=== PATIENT | female | born 1965 | race Caucasian/White ===

== ENCOUNTER 2024-02-20 10:47 | Emergency (ER) | payer SELFPAY ==
[2024-02-20 11:10] VITALS: BP 155/87
[2024-02-20 11:41] VITALS: BMI 24.9
[2024-02-20 11:45] VITALS: BP 143/83
[2024-02-20 12:01] VITALS: BP 148/71
[2024-02-20 12:09] LABS: Urine Albumin Trace (Neg - Trace); Urine Bilirubin Negative (Negative); Urine Character Clear (Clear); Urine Color Yellow; Urine Glucose Negative (Negative); Urine Ketone Trace (Negative); Urine Leukocyte Trace (Negative); Urine Nitrite Negative (Negative); Urine Occult Blood 4+ (Negative); Urine Specific Gravity 1.015 (<1.030); Urine Urobilinogen Negative (Neg - 1+)
[2024-02-20 12:10] LABS: % Basophils 0.3 % (0-2); % Immature Granulocytes 0.3 % (0-0.5); % Lymphocytes 12.7 % (20.5-51.1); % Monocytes 6.4 % (1.7-9.3); % Neutrophils 80.3 % (42.2-75.2); Absolute Lymphocytes 1.4 10^3/uL (1.2-3.4); Absolute Monocytes 0.7 10^3/uL (0.1-0.6); Absolute Neutrophils 8.6 10^3/uL (1.4-6.5); Hematocrit 37.1 % (37.0-47.0); Hemoglobin 13.2 g/dL (12.0-16.0); Mean Corp Hgb Conc. 35.6 g/dL (33.0-37.0); Mean Corpuscular Volume 89.8 fL (81.0-99.0); Mean Platelet Volume 8.9 fL (7.4-10.4); Nucleated Red Blood Cells % 0 %; Platelet Count 200 10^3/uL (130-400); Red Blood Cell Count 4.13 10^6/uL (4.20-5.40); Red Cell Dist. Width 12.3 % (11.5-14.5); White Blood Cell Count 10.7 10^3/uL (4.8-10.8)
[2024-02-20 12:17] LABS: Urine Bacteria Few (Negative); Urine Red Blood Cell 70-80 /HPF (0-2); Urine Squamous Cell 0-2 /LPF (Few); Urine White Cell 0-2 /HPF (0-5)
[2024-02-20 12:18] LABS: ALT (SGPT) 25 U/L (0-35); AST (SGOT) 31 U/L (14-36); Albumin 4.7 g/dl (3.5-5.0); Alkaline Phosphatase 81 U/L (38-126); Blood Urea Nitrogen 18 mg/dl (7-17); Calcium 10.2 mg/dl (8.4-10.2); Carbon Dioxide 28 mmol/L (22-30); Chloride 98 mmol/L (98-107); Estimated Creatinine Clearance 46 ml/min; Glucose 128 mg/dl (70-99); Lipase 120 U/L (23-300); Potassium 4.4 mmol/L (3.5-5.1); Sodium 135 mmol/L (135-145); Total Bilirubin 0.6 mg/dl (0.2-1.3); Total Protein 7.7 g/dl (6.3-8.2); eGFR 51.82
[2024-02-20 13:00] VITALS: BP 156/80
[2024-02-20] MEDS: NSS 1000 IV (13:13)
[2024-02-20] MEDS: PEPCID 20 MG IV (13:15)
[2024-02-20] MEDS: ZOFRAN 4 MG IV (13:15)
[2024-02-20 14:00] VITALS: BP 167/87
--- NOTE | 2024-02-20 15:17 | ED.GENMED ---
History of Present Illness
General
Chief Complaint: Abdominal Pain
Source: patient
Exam Limitations: none
Time Seen by Provider: 02/20/24 11:59
Nursing documentation reviewed up to this point in time: agreed with
Travel History
Have you had any contact with someone who has COVID-19?: No
Do you have any symptoms of coronavirus? Fever > 100 degrees, chills, cough, shortness of breath, sore throat, loss of taste or smell, muscle aches, or headache?: No
History of Present Illness
History of Present Illness:
58-year-old female past medical history of seizure disorder presenting to the emergency department today with concerns of right lower abdominal pain starting last night with associated vomiting but with diarrhea last night as well. Pain is mainly
to the right flank and right lower abdomen at this point. Denies any fevers, vaginal symptoms
Past History
Past History
ED Past Medical History: None
ED Past Surgical History: None
Social History
Tobacco: Non-smoker
Alcohol: Occasional (drinks 1-2 nights per week)
Drug: None
Personal: Single
Living: alone
Employment: Employed
Family History
Family History: Other (aortic dissection, brother 60 y/o)
Review of Systems
Review of Systems
Allergies reviewed?: Yes
All Other Systems: ROS reviewed and negative except as documented in HPI and ROS
Phy Exam
Physical Exam
Physical Exam:
GENERAL: Alert , in no apparent distress
EYE: pupils equal and reactive
NECK: Supple, no significant adenopathy.
ENT: o/p clr, mmm.
CARDIAC: Regular rate and rhythm .
LUNGS: Clear breath sounds bilaterally, no acute respiratory distress, no wheezes/rales/rhonchi
ABDOMEN: Soft, without focal tenderness, no r/g, no cvat
NEUROLOGICAL: Alert and oriented, no focal neuro deficits
SKIN: Warm and dry, skin intact.
MUSCULOSKELETAL: No edema, well perfused.
PSYCH: Normal and appropriate interaction.
Course
Orders/Labs/Results
Orders:
Orders
02/20/24 11:55
Complete Blood Count/With Diff Urgent
Comprehensive Metabolic Panel Urgent
Lipase Urgent
Urinalysis Reflex To Culture Urgent
Date Specimen was Collected: 02/20/24
Time Specimen was Collected: 11:53
Urine Microscopic Reflex Cult Urgent
02/20/24 12:51
CT Abd/Pel (IV only)-DH only Urgent
Comment:
Reason For Exam: rlq pain
Famotidine [Pepcid] 20 mg IV NOW STA
Ondansetron Injectable [Zofran] 4 mg IV NOW STA
02/20/24 12:52
0.9% Sodium Chloride 1000 ml [Nss] 1,000 ml IV BOLUS
Abnormal Lab Results
02/20/24
11:55
RBC 4.13 L 10^6/uL
(4.20-5.40)
MCH 32.0 H pg
(27.0-31.0)
Absolute Neuts (auto) 8.6 H 10^3/uL
(1.4-6.5)
Absolute Monos (auto) 0.7 H 10^3/uL
(0.1-0.6)
Neutrophils % 80.3 H %
(42.2-75.2)
Lymphocytes % 12.7 L %
(20.5-51.1)
BUN 18 H mg/dl
(7-17)
Creatinine 1.2 H mg/dL
(0.6-1.0)
Glucose 128 H mg/dl
(70-99)
Urine Ketones Trace A
(Negative)
Ur Occult Blood Reflex 4+ A
(Negative)
Leukocyte Esterase Rfl Trace A
(Negative)
Urine RBC 70-80 A /HPF
(0-2)
Urine Bacteria (Reflex) Few A
(Negative)
02/20/24 11:55
02/20/24 11:55
Vital Signs
Initial and Last Documented VS:
Initial Vital Signs
Temp Pulse Resp BP Pulse Ox
98.3 F 74 16 155/87 99
02/20/24 11:10 02/20/24 11:10 02/20/24 11:10 02/20/24 11:10 02/20/24 11:10
Last Documented Vital Signs
Temp Pulse Resp BP Pulse Ox
98.3 F 69 18 167/87 98
02/20/24 11:10 02/20/24 14:45 02/20/24 14:45 02/20/24 14:00 02/20/24 15:04
MDM/Problems Addressed
MDM/Problems Addressed:
58-year-old female presenting to the emergency department today with concerns of right-sided abdominal pain starting last night associated vomiting. Here minimal discomfort to palpation but patient describing significant pain concerning the CT scan
was performed. This showed 8 mm stone to the proximal right ureter and 4.4 mm stone to the distal right ureter. Creatinine 1.2 BUN of 18 otherwise labs unremarkable urine showing red blood cells but no signs of infection. Symptoms well-controlled
here. Plan for symptomatic treatment and close follow-up with urology. The case was discussed with urology that we will get her in for follow-up for further treatment and recommendation.
*Critical Care Note
Total Time (30-74mins, 75-104mins- exclusive of procedures): Not Applicable
ED Attending Note
-
Portions of this chart may have been created with voice recognition software.� Occasional wrong word or��sound alike� substitutions may have occurred due to the inherent limitations of voice recognition software.
Discharge Plan
Departure
Patient Disposition: Home (Routine Discharge)
Date of Disposition: 02/20/24
Time of Disposition: 15:21
Patient with high blood pressure during this ER visit?: No
Condition: Good
Covid-19: Not Applicable
Discharge Problem:
Renal calculus, right
Instructions: Kidney Stones (DC)
Prescriptions:
New
ketorolac 10 mg tablet
10 mg PO Q8H 5 Days Qty: 15 0RF
tamsulosin [Flomax] 0.4 mg capsule
0.4 mg PO HS Qty: 14 0RF
ondansetron 4 mg tablet,disintegrating
4 mg PO Q8H PRN (Reason: nausea and vomiting) Qty: 7 0RF
No Action
ascorbic acid (vitamin C) [Vitamin C] 1,000 mg Tablet
1,000 mg PO DAILY
zinc 25 mg Tablet
25 mg PO DAILY
taurine 500 mg Capsule
500 mg PO DAILY
cholecalciferol (vitamin D3) [Vitamin D3] 10 mcg (400 unit) Tablet
10 mcg PO DAILY
Codasystem 45-3.75-50 mg Tablet,Chewable
1 tab PO DAILY
selenium 50 mcg Tablet
50 mcg PO DAILY
Fish Oil Capsule
1,000 mg PO DAILY
Referrals:
Royce Lutz MD [Active] - Follow up in 5-7 days
Teo Padilla MD [Family Provider] -
Activity Restrictions/Additional Instructions:
You came to the emergency department today with concerns of right-sided discomfort. You are found to have 2 stones in your ureter. Please take the prescribed medications to help with symptoms follow-up closely with our urologist. Return to the
emergency department for any worsening, new or concerning symptoms.
Interventions
Interventions:
*Risk Screen - Suicide Last Done: 02/20/24 11:42
*General Assessment Last Done: 02/20/24 11:45
*Neglect/Abuse Screening Last Done: 02/20/24 11:42
ED- Fall Risk Assessment Last Done: 02/20/24 11:37
*ED COVID-19 Vaccine History Last Done: 02/20/24 11:10
QA-Qcespu-Reydxmwwdh Assessment Last Done: 02/20/24 11:46
Discharge Date and Time
Print Language: MOZAMBICAN
== END 2024-02-20 15:44 | disposition home or self-care (01) ==
LOC: EMR 10:47
PROVIDERS: Emergency Medicine; EMERGENCY PHYSICIAN Emergency Medicine; FAMILY PHYSICIAN Family Medicine
DX: N20.0 Calculus of kidney (principal); R11.10 Vomiting, unspecified; R19.7 Diarrhea, unspecified; G40.909 Epilepsy, unspecified, not intractable, without status epilepticus; Z88.2 Allergy status to sulfonamides
CPT/HCPCS: 99285; 96375; 96361; 96374; 74177; 80053; 81003; 81015; 83690; 85025; Q9967